=== PATIENT | male | born 1995 | race Caucasian/White ===

== ENCOUNTER 2023-11-14 22:24 | Inpatient (IN) | payer SELFPAY ==
[~2023-11-14] VITALS: Ht 185.4 cm; Wt 84.1 kg
[2023-11-14 23:22] LABS: HEMOGLOBIN 14.3 g/dl (13.5-17.5); MEAN CORPUSCULAR HEMOGLOBIN 32.1 pg (27.0-33.0); MEAN CORPUSCULAR HGB CONC 34.9 g/dl (32.0-36.5); MEAN CORPUSCULAR VOLUME 91.9 fl (80.0-96.0); PLATELET COUNT, AUTOMATED 212 10^3/uL (150-450); RED BLOOD COUNT 4.46 10^6/uL (4.30-6.10); WHITE BLOOD COUNT 11.8 10^3/uL (4.0-10.0)
[2023-11-14 23:55] LABS: AMPHETAMINES LEVEL URINE NEGATIVE (NEGATIVE); BARBITURATES URINE NEGATIVE (NEGATIVE); BENZODIAZEPINES URINE NEGATIVE (NEGATIVE); COCAINE METABOLITE URINE NEGATIVE (NEGATIVE); METHADONE URINE NEGATIVE (NEGATIVE); OPIATES URINE NEGATIVE (NEGATIVE); PHENCYCLIDINE URINE NEGATIVE (NEGATIVE)
[2023-11-14 23:57] LABS: ETHYL ALCOHOL (ETHANOL) 0.098 % (0.000-0.010)
[2023-11-14 23:59] LABS: ALBUMIN 4.6 G/DL (3.2-5.2); ALKALINE PHOSPHATASE 66 U/L (46-116); ALT/SGPT 27 U/L (7.0-40); AST/SGOT 26 U/L (<34); BILIRUBIN,DIRECT 0.2 MG/DL (<0.4); BILIRUBIN,TOTAL 0.5 MG/DL (0.3-1.2); BLOOD UREA NITROGEN 11 MG/DL (9-23); CALCIUM LEVEL 9.2 MG/DL (8.5-10.1); CARBON DIOXIDE LEVEL 21 MMOL/L (20-31); CHLORIDE LEVEL 107 MMOL/L (98-107); CREATININE FOR GFR 0.95 MG/DL (0.70-1.30); GLOMERULAR FILTRATION RATE > 60.0 (>60); GLUCOSE, FASTING 95 MG/DL (60-100); POTASSIUM SERUM 3.8 MMOL/L (3.5-5.1); SALICYLATE LEVEL < 3.0 MG/DL (<30); SODIUM LEVEL 139 MMOL/L (136-145); TOTAL PROTEIN 7.3 G/DL (5.7-8.2)
[2023-11-15 00:01] LABS: THYROID STIMULATING HORMONE 1.465 uIU/ML (0.55-4.78)
[2023-11-15] MEDS ORDERED: HOME MED LIST COMPLETE! XX SCH (00:05)
[2023-11-15 00:14] LABS: CANNABINOIDS URINE POSITIVE (NEGATIVE)
[2023-11-15] MEDS ORDERED: MAALOX 30 ML SUSP *UDC PO PRN (12:40)
[2023-11-15] MEDS ORDERED: IBUPROFEN 400MG TAB PO PRN (12:40)
[2023-11-15] MEDS ORDERED: ACETAMINOPHEN TAB 650MG DOSE (2X325MG) PO PRN (12:40)
[2023-11-15] MEDS ORDERED: MOM 30ML SUSPENSION UDC PO PRN (12:40)
[2023-11-15] MEDS ORDERED: diphenhydrAMINE 25MG CAP PO PRN (12:40)
[2023-11-15] MEDS ORDERED: traZODone 50 MG TAB PO PRN (12:40)
[2023-11-15 13:55] VITALS: BP 134/76; TEMP 97.3; O2SAT 100
[2023-11-16 06:24] VITALS: BP 132/85; TEMP 97.8; O2SAT 100
[2023-11-16] MEDS ORDERED: DIPH-435 PO (12:29)
[2023-11-16] MEDS ORDERED: LORazepam 2 MG TAB PO PRN (12:40)
[2023-11-16] MEDS: FOLIC ACID 1MG TAB PO SCH (12:46)
[2023-11-16] MEDS: THIAMINE 100 MG TAB PO SCH (12:47)
[2023-11-16] MEDS: MULTIVITAMINS/MINERALS THERAP 1 TAB PO SCH (12:47)
== END 2023-11-16 15:07 | disposition home or self-care (01) | DRG 756 ==
LOC: M ED 22:24 → M ED INP 11-15 12:40 → M PSY 11-15 13:59
PROVIDERS: ADMIT Student in an Organized Health Care Education/Training Program; ATTEND Student in an Organized Health Care Education/Training Program
DX: F43.0 Acute stress reaction (principal); F10.20 Alcohol dependence, uncomplicated; F12.90 Cannabis use, unspecified, uncomplicated; Z11.52 Encounter for screening for COVID-19; Z63.0 Problems in relationship with spouse or partner; Z79.899 Other long term (current) drug therapy